=== PATIENT | male | born 1955 | race African-American/Black ===

== ENCOUNTER → 2022-03-15 | Outpatient (CLI) | payer MEDICARE, BC ==
[~2022-03-15] MED LIST: MED FOR CHOLESTEROL; PERCOCET 325 MG1 TA2 PO
== END ==
LOC: COL.RAD 10:38
DX: I86.1 Scrotal varices (principal); N50.89 Other specified disorders of the male genital organs; Z90.79 Acquired absence of other genital organ(s)